=== PATIENT | female | born 1970 | race Caucasian/White ===

== ENCOUNTER 2017-06-29 16:15 | Emergency (ER) | payer BC ==
[~2017-06-29] VITALS: Ht 162.6 cm; Wt 73.9 kg
[~2017-06-29 16:15] MED LIST: ACET-73 PO
--- NOTE | 2017-06-29 16:20 | NUR ---
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 VSS
[2017-06-29] MEDS ORDERED: HYDROCODONE/APAP 5/325MG 1 EACH TABLET ONE (16:39)
[2017-06-29] MEDS ORDERED: KETOROLAC TROMETHAMINE INJ 60 MG/2 ML VIAL IM ONE ×2 (16:39→17:00)
[2017-06-29] MEDS ORDERED: HYDROCODONE/APAP 5/325MG 1 EACH TABLET PO ONE (17:00)
[2017-06-29 18:22] VITALS: BP 120/80
--- NOTE | 2017-06-29 18:22 | NUR ---
Patient discharged to home in stable condition. Written and verbal after care instructions given. Patient verbalizes understanding of instruction.
== END 2017-06-29 18:22 | disposition home or self-care (01) ==
LOC: ER 16:16
DX: M54.5 Low back pain (principal); F17.200 Nicotine dependence, unspecified, uncomplicated; Z88.8 Allergy status to other drugs, medicaments and biological substances; Z88.6 Allergy status to analgesic agent
CPT/HCPCS: 72110; 96372; 99284; A4606; J1885; Z7610